=== PATIENT | female | born 1955 | race Caucasian/White ===

== ENCOUNTER 2023-02-17 10:24 | Emergency (ER) | payer MEDICARE, MEDICAID, SELFPAY ==
--- NOTE | 2023-02-17 10:29 | XR_ITS ---
WS: [id number] XR chest 1V portable [id number] REASON FOR EXAM: dyspnea/cough FINDINGS: Mild tortuosity of the thoracic aorta. Normal heart size. Minimal calcified granulomatous disease in both hemithoraces. No acute or subacute pulmonary parenchymal or pleural abnormality is identified. There is elevation of the right hemidiaphragm. Moderate degenerative spondylosis in the thoracic spine. XR/XR chest 1V portable [id number] IMPRESSION: No acute chest abnormality.
--- NOTE | 2023-02-17 10:30 | ECG_ITS ---
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 Measurements Intervals [place] Rate: 74 P: 15 MA: 158 QRS: 25 QRSD: 94 T: 45 QT: 383 QTc: 425 Interpretive Statements SINUS RHYTHM POSSIBLE ANTERIOR MYOCARDIAL INFARCTION , PROBABLY OLD [30 ms Q WAVE IN V3/V4, OR R < 0.2 mV IN V4] No previous ECG available for comparison Electronically Signed On 02-17-2023 16:32:54 CDT by Shay Talbert M.D. [email or web address].[employer]/store/NU/[id number] f
[2023-02-17 10:34] VITALS: BP 152/66; PULSE 78; RESP 16; TEMP 36.4; O2SAT 100
--- NOTE | 2023-02-17 10:37 | CT_ITS ---
WS: [id number] CT HEAD NONCONTRAST HISTORY: Left arm numbness TECHNIQUE: Contiguous axial imaging performed through the brain in 2.5 mm imaging. Bone and soft tiss ue windows. Sagittal and coronal reformats reviewed. All CT scans at [facility] use at least one of these dose optimization techniques: automated exposure control; mA and/or kV adjustment per pa tient size (includes targeted exams where dose is matched to clinical indication); or iterative recon struction. DLP: 978.54 mGy.cm COMPARISON: None available. No acute intracranial hemorrhage, midline shift or mass effect. No significant atrophy. Prior lacunar infarct LEFT joel radiata. Additional small vessel ischemic d isease versus prior infarct RIGHT parietal lobe adjacent to the occipital horn of the lateral ventric le. Ventricles: Normal size with no hydrocephalus. No inferior displacement of the cerebellar tonsils. Paranasal sinuses: As visualized are clear. Mastoid air cells: Well pneumatized. Calvarium and scalp: Skull is intact with no soft tissue edema or swelling. CT/CT head wo con* [id number] IMPRESSION: 1. No acute intracranial hemorrhage or edema. 2. No acute infarct identified. 3. Small remote lacunar infarct LEFT joel radiata.
[2023-02-17 11:03] LABS: Basophils # 0.1 10^3/uL (0.0-0.1); Basophils % 0.8 %; Eosinophils # 0.2 10^3/uL (0.0-0.8); Eosinophils % 2.5 %; Hematocrit 34.4 % (37.0-47.0); Hemoglobin 11.3 g/dL (11.5-15.3); Lymphocytes # 3.1 10^3/uL (0.8-4.8); Lymphocytes % 37.3 %; Mean Corpuscular HGB Conc 32.8 g/dL (30.0-36.0); Mean Corpuscular Hemoglobin 31.1 pg (28.0-34.0); Mean Corpuscular Volume 94.8 fl (81-99); Mean Platelet Volume 10.6 fL (7.4-10.4); Monocytes # 0.7 10^3/uL (0.2-0.9); Monocytes % 8.7 %; Neutrophils # 4.23 10^3/uL (1.8-7.7); Neutrophils % 50.6 %; Nucleated Red Blood Cells % 0 %; Platelet Count 249 10^3/cmm (130-400); Red Blood Count 3.63 10^6/uL (4.1-5.3); Red Cell Distribution Width 12.8 % (12.1-15.1); White Blood Count 8.4 10^3/uL (4.0-10.0)
[2023-02-17] MEDS: aspirin 81 mg Chew Tablet 324 MG PO (11:04)
[2023-02-17 11:12] VITALS: BP 132/74; PULSE 63; RESP 16; O2SAT 100
[2023-02-17 11:22] LABS: Alanine Aminotransferase 12 U/L (0-33); Alkaline Phosphatase 123 U/L (35-105); Anion Gap 15.9 (5-19); Aspartate Amino Transferase 15 U/L (0-32); Blood Urea Nitrogen 20 mg/dL (8-23); Calcium 9.3 mg/dL (8.5-10.5); Carbon Dioxide 24 mmol/L (22-29); Chloride 104 mmol/L (98-107); Glomerular Filtration Rate 37.4 mL/min (90-130); Glucose 91 mg/dL (65-115); Osmolality Calculated 290 mOsm/kg (285-295); Potassium 4.9 mmol/L (3.5-5.1); Sodium 139 mmol/L (136-145); Total Bilirubin 0.3 mg/dL (0.15-1.2)
[2023-02-17 11:23] LABS: Troponin(5th) Baseline 17 ng/L (0-10)
--- NOTE | 2023-02-17 11:27 | W.ED.CHESTPA ---
HPI - Chest Pain General: Chief Complaint: Chest Pain Stated Complaint: CHEST PAIN Time Seen by Provider: 02/17/23 10:29 Source: patient Mode of arrival: ambulatory History of Present Illness: 67-year-old female presents emergency room complaints of chest pain left-sided for last 4 days not does anything exacerbates or relieves. No cough no fever no sweats or chills. No vomiting no associated shortness of breath. No known history of coronary artery disease. MD complaint: chest pain Onset (ago): day(s) (4) Timing of current episode: episodic Prior episodes: Yes Relieving factors: nothing Exacerbating factors: nothing Associated symptoms: Deny abdominal pain, diaphoresis, dyspnea, fever(s), leg edema, nausea, palpitations, sense of impending doom, syncope or vomiting Review of Systems Const: Denies: fever(s), chills, fatigue, malaise or diaphoresis ENMT: Denies: throat pain, ear or mastoid pain, nasal discharge or nasal congestion Card: Reports: chest pain; Denies: palpitations, irregular heart rhythm, edema, swelling of feet/ankles, syncope, dyspnea on exertion or orthopnea Resp: Denies: dyspnea, productive cough, non-productive cough or wheezing GI: Denies: abdominal pain, nausea or vomiting : Denies: flank pain, difficulty voiding, dysuria, urinary frequency or urinary urgency Skin/Breast: Denies: rash or pruritus PFSH ED PFSH: Medical History (Updated 02/18/23 @ 17:00 by Tristan Thornton DO) Asthma Hyperlipidemia Hypertension Peripheral neuropathy Physical Exam Const: COMMON NORMALS: no acute distress GENERAL APPEARANCE: cooperative and comfortable ORIENTATION/CONSCIOUSNESS: Yes awake, Yes oriented to person, Yes oriented to place and Yes oriented to time HENMT: COMMON NORMALS: normocephalic, atraumatic and hearing grossly normal bilaterally HEAD & SCALP: normocephalic and atraumatic Resp: COMMON NORMALS: normal respiratory effort, No retractions, No use of accessory muscles and clear to auscultation bilaterally AUSCULTATION: clear to auscultation bilaterally Cardio: COMMON NORMALS: regular rate, regular rhythm and No murmurs present (Cardio) RATE: regular rate RHYTHM: regular rhythm GI: COMMON NORMALS: Soft to palpation and No hepatosplenomegaly present AUSCULTATION: Yes normoactive bowel sounds PALPATION: Yes Soft to palpation, No Tenderness to palpation present (GI), No Guarding due to palpation present (GI) and Yes No hepatosplenomegaly present Extremity: COMMON NORMALS: normal to inspection, capillary refill normal, no clubbing, cyanosis or edema, no calf tenderness and no pedal edema Neuro: SENSORIUM/ORIENTATION: Yes oriented to person, Yes oriented to place and Yes oriented to time Skin: COMMON NORMALS: no rashes or lesions noted GENERAL SKIN EXAM: no rashes or lesions noted Course Vital Signs: Vital signs: Vital Signs Temperature 97.6 F 02/17/23 10:34 Pulse Rate 69 02/17/23 15:04 Respiratory Rate 16 02/17/23 15:04 Blood Pressure 137/80 02/17/23 15:04 Pulse Oximetry 98 02/17/23 15:04 Oxygen Delivery Me thod 02/17/23 14:10 MDM - Chest Pain Medical Decision Making Labs imaging and EKG were reviewed no acute EKG findings noted cardiac enzymes negative. We will add isosorbide mononitrate to improve blood pressure control also add aspirin daily set up for outpatient Lexiscan sestamibi stress test return if is further problems. Medical Records I reviewed the patient's medical records. Lab Data I reviewed the patient's lab results. 02/17/23 10:55 02/17/23 10:55 Radiology Impressions Chest X-Ray 02/17/23 10:29 IMPRESSION: No acute chest abnormality. Head CT 02/17/23 10:37 IMPRESSION: 1. No acute intracranial hemorrhage or edema. 2. No acute infarct identified. 3. Small remote lacunar infarct LEFT joel radiata. Laboratory Results WBC 8.4 10^3/uL (4.0-10.0) 02/17/23 10:55 RBC 3.63 10^6/uL (4.1-5.3) L 02/17/23 10:55 Hgb 11.3 g/dL (11.5-15.3) L 02/17/23 10:55 Hct 34.4 % (37.0-47.0) L 02/17/23 10:55 MCV 94.8 fl (81-99) 02/17/23 10:55 MCH 31.1 pg (28.0-34.0) 02/17/23 10:55 MCHC 32.8 g/dL (30.0-36.0) 02/17/23 10:55 RDW 12.8 % (12.1-15.1) 02/17/23 10:55 Plt Count 249 10^3/cmm (130-400) 02/17/23 10:55 MPV 10.6 fL (7.4-10.4) H 02/17/23 10:55 Neut % (Auto) 50.6 % 02/17/23 10:55 Lymph % (Auto) 37.3 % 02/17/23 10:55 [place] % (Auto) 8.7 % 02/17/23 10:55 Eos % (Auto) 2.5 % 02/17/23 10:55 Baso % (Auto) 0.8 % 02/17/23 10:55 Neut # (Auto) 4.23 10^3/uL (1.8-7.7) 02/17/23 10:55 Lymph # (Auto) 3.1 10^3/uL (0.8-4.8) 02/17/23 10:55 [place] # (Auto) 0.7 10^3/uL (0.2-0.9) 02/17/23 10:55 Eos # (Auto) 0.2 10^3/uL (0.0-0.8) 02/17/23 10:55 Baso # (Auto) 0.1 10^3/uL (0.0-0.1) 02/17/23 10:55 Nucleated RBC % (auto) 0 % 02/17/23 10:55 Nucleated RBCs # 0.0 /100WBC 02/17/23 10:55 Sodium 139 mmol/L (136-145) 02/17/23 10:55 Potassium 4.9 mmol/L (3.5-5.1) 02/17/23 10:55 Chloride 104 mmol/L (98-107) 02/17/23 10:55 Carbon Dioxide 24 mmol/L (22-29) 02/17/23 10:55 Anion Gap 15.9 (5-19) 02/17/23 10:55 BUN 20 mg/dL (8-23) 02/17/23 10:55 Creatinine 1.4 mg/dL (0.5-0.9) H 02/17/23 10:55 GFR Calculation 37.4 mL/min (90-130) L 02/17/23 10:55 Glucose 91 mg/dL (65-115) 02/17/23 10:55 Calculated Osmolality 290 mOsm/kg (285-295) 02/17/23 10:55 Calcium 9.3 mg/dL (8.5-10.5) 02/17/23 10:55 Total Bilirubin 0.3 mg/dL (0.15-1.2) 02/17/23 10:55 AST 15 U/L (0-32) 02/17/23 10:55 ALT 12 U/L (0-33) 02/17/23 10:55 Alkaline Phosphatase 123 U/L (35-105) H 02/17/23 10:55 Troponin T Baseline 17 ng/L (0-10) H 02/17/23 10:55 Troponin T 120 Minute 17.80 ng/L (0-10) H 02/17/23 12:42 Delta Troponin T 0.80 ABS# (0-10) 02/17/23 12:42 Total Protein 8.0 g/dL (6.6-8.7) 02/17/23 10:55 Albumin 4.0 g/dL (3.5-5.2) 02/17/23 10:55 Globulin 4.0 g/dL (1.3-4.6) 02/17/23 10:55 Discharge Plan Discharge Patient Disposition: Home Clinical Impression: Atypical chest pain Condition: Stable Prescriptions: New isosorbide mononitrate 30 mg tablet extended release 24 hr 30 mg PO DAILY Qty: 30 0RF No Action atorvastatin 80 mg tablet 80 mg PO QAM omeprazole 40 mg capsule,delayed release(DR/EC) 40 mg PO QAM aspirin 81 mg tablet,delayed release (DR/EC) 81 mg PO QAM spironolactone 25 mg tablet 25 mg PO QAM lisinopril 10 mg tablet 10 mg PO QAM gabapentin 100 mg capsule 100 mg PO TID albuterol sulfate [Ventolin HFA] 90 mcg/actuation HFA aerosol inhaler 2 puff INHALATION Q4H PRN (Reason: Shortness Of Breath) multivitamin Tablet 1 tab PO QAM Discharge Orders: Discharge ED (Routine); Ordered 02/17/23 Ordered By: Tristan Thornton Referrals: Susy Vann MD [Primary Care Provider] - Discharge Diet: Usual diet Discharge Activity: Limit activity as instructed Patient Instructions: Opioid Safety, Pain Management Activity Restrictions/Additional Instructions: Continue taking aspirin and atorvastatin. Additionally start the isosorbide mononitrate 30 mg once daily. Case management will make arrangements for a outpatient stress test. Coding Level of Care Code ED Brake Operator Helper for Zeinab Floyd
--- NOTE | 2023-02-17 12:30 | ECG_ITS ---
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 Measurements Intervals [place] Rate: 71 P: -15 CT: 133 QRS: 6 QRSD: 98 T: 94 QT: 390 QTc: 424 Interpretive Statements SINUS RHYTHM POSSIBLE ANTERIOR MYOCARDIAL INFARCTION , PROBABLY OLD [30 ms Q WAVE IN V3/V4, OR R < 0.2 mV IN V4] Compared to ECG 02/17/2023 10:33:22 No significant changes Electronically Signed On 02-17-2023 16:44:06 CDT by Shay Talbert M.D. [id number]
[2023-02-17 13:26] VITALS: BP 121/69; PULSE 67; RESP 16; O2SAT 100
[2023-02-17 14:10] VITALS: BP 142/65; PULSE 66; RESP 16; O2SAT 98
[2023-02-17 15:04] VITALS: BP 137/80; PULSE 69; RESP 16; O2SAT 98
--- NOTE | 2023-02-21 15:07 | DCPLANNER ---
Addendum entered by Stephanie Iraheta 03/29/23 14:24: Patient had an outpatient stress test scheduled - patient did attend appointment. Addendum entered by Stephanie Iraheta 03/17/23 09:34: Patient has an outpatient stress test scheduled for Saturday, March 25, 2023 at 9:00. Original Note: content creation manager had message to schedule an outpatient stress test for patient. content creation manager faxed signed order to centralized scheduling, who will call patient with appointment information.
== END 2023-02-17 15:08 | disposition home or self-care (01) ==
PROVIDERS: Emergency Provider Family Medicine; PCP Family Medicine
DX: R07.89 Other chest pain (principal); Z79.82 Long term (current) use of aspirin; I10 Essential (primary) hypertension; E78.5 Hyperlipidemia, unspecified
CPT/HCPCS: 36415; 70450; 71045; 80053; 84484; 85025; 93005; 99285

== ENCOUNTER 2023-03-25 08:20 | Outpatient (CLI) | payer MEDICARE, MEDICAID, SELFPAY ==
--- NOTE | 2023-03-25 | ECG_ITS ---
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 Interpretive Statements NAME OF STUDY: LEXISCAN SESTAMIBI STRESS TEST INDICATION: Asthma, PROCEDURE: At the baseline, the EKG revealed normal sinus rhythm with a poor R wave progression. Normal ST Ts. The baseline heart was 63 bpm with a blood pressue of 126/75 mm of Hg Lexiscan was infused over a period of 20 seconds. A total of 0.4 milligrams of Lexiscan was infused. The stress phase was continued for a total of 5 minutes. Heart rate at the end of the stress phase was 83 bpm with a blood pressure 128/78 mm of Hg. The EKG at the peak infusion revealed no significant changes. Sestamibi was injected 20 seconds after the Lexiscan infusion. Heart rate at the end of the recovery phase was 75 bpm with a blood pressure of 129/67 mm of Hg. CONCLUSION: 1. No significant EKG changes with the LexiScan infusion 2. No LexiScan induced chest pain or cardiac arrhythmia 3. Normal blood pressure and heart rate response 4. Sestamibi/sestamibi perfusion scan pending; see separate report. Electronically Signed On 04-01-2023 20:15:31 CDT by Mercy Ashraf M.D. [id number]
[2023-03-25 08:48] VITALS: BMI 38.9
--- NOTE | 2023-03-25 08:49 | NMCV_ITS ---
NM [place]aine perf SPECT r/s* [id number] Brea Chen Age: 67 Gender: F : 1955 Exam Date: 03/25/2023 08:49 Ordering Phys: Tristan Thornton DO Technologist: DEBBIE Rush Exam Location: [facility] Indications: ASTHMA, SHORTNESS OF BREATH STRESS TEST Please see separate stress test report in [facility] for full findings IMAGE PROTOCOL Rest/Stress 1 Lexiscan Day Radiopharmaceutical Dose (mCi) Administration Site Administered by Rest: Tc-99m 11.0 IV Jaya Cordova, UNION LABORER Sestamibi Stress:Tc-99m 32.3 IV Jaya Cordova, UNION LABORER Sestamibi Rest: 25-Mar-2023 60 Discovery 630 Stress: 25-Mar-2023 30 Discovery 630 0.4mg Lexiscan. Supine position only as patient was unable to lay prone. SPECT RESULTS Technical Quality: Excellent Raw Data Analysis: Image Corrections: No attenuation or motion correction applied Summed Stress Score: 7 Summed Rest Score: 8 Summed Difference Score: 1 PERFUSION FINDINGS A small to moderate area of moderately decreased tracer uptake was noted in mid inferolateral, apical lateral, apical inferior and apical septal segments. A very small area of reversibility was noted in the apical septal region FUNCTIONAL RESULTS (calculated via Gated SPECT) Stress Image LV EF (%): 70 Stress EDV (mL):91 TID: 1.35 Stress ESV (mL):27 FUNCTIONAL FINDINGS: Segmental wall motion analysis revealing no gross wall motion abnormalities IMPRESSIONS 1. Myocardial perfusion imaging revealing small to moderate area of persistent decreased tracer uptake involving the inferolateral and apical segments with a subtle area of reversibility in the apical septal region suggesting myocardial scarring in the distribution of all the 3 coronary arteries with a very small area of abdirahman-infarction ischemia. 2. Normal LV ejection fraction of 70%. 3. LV wall motion analysis revealing no gross wall motion abnormalities. 4. Normal LV volume 5. Elevated transient ischemic dilatation ratio of 1.35, also may suggest ischemia No similar previous studies are available for comparison Dr Mercy Ashraf MD [facility] (Electronically Signed) Final Date: 25 Mar 2023 14:35 S
[2023-03-25] MEDS: ondansetron 2 mg/ML SDV 2 mL 4 MG IVP (10:37)
[2023-03-25] MEDS: regadenoson 0.4 Mg/5 ml Syringe IVP (10:38)
[2023-03-25 10:44] VITALS: BP 129/67; PULSE 73
== END 2023-03-25 08:21 | disposition home or self-care (01) ==
LOC: CDL 08:24
PROVIDERS: PCP Family Medicine; Visit Provider Family Medicine
DX: J45.909 Unspecified asthma, uncomplicated (principal); R06.02 Shortness of breath; I25.9 Chronic ischemic heart disease, unspecified
CPT/HCPCS: 36415; 78452; 93017; 96374; 96375; A9500; J2405; J2785